=== PATIENT | female | born 2005 | race Caucasian/White ===

== ENCOUNTER 2024-03-31 22:55 | Observation (INO) | payer OTHER ==
[2024-03-31 23:23] VITALS: BP 119/82; PULSE 81; RESP 17; TEMP 98.4; O2SAT 99
== END 2024-04-01 00:13 | disposition home or self-care (01) ==
LOC: OB 22:55
PROVIDERS: ADMIT Obstetrics & Gynecology; ATTEND Obstetrics & Gynecology
DX: Z34.02 Encounter for supervision of normal first pregnancy, second trimester (principal); Z3A.27 27 weeks gestation of pregnancy
CPT/HCPCS: G0378; G0379

== ENCOUNTER 2024-06-06 23:20 | Observation (INO) | payer OTHER ==
[2024-06-06 23:58] VITALS: BP 128/83; PULSE 107; RESP 20; TEMP 98.8; O2SAT 97
[2024-06-07 00:31] LABS: AMNISURE TEST RESULTS NEGATIVE (NEGATIVE)
[2024-06-07 00:37] LABS: Amphetamine,Urine NEGATIVE (NEGATIVE); Barbiturate,Urine NEGATIVE (NEGATIVE); Benzodiazepine,Urine NEGATIVE (NEGATIVE); Cocaine,Urine NEGATIVE (NEGATIVE); Methadone,Urine NEGATIVE (NEGATIVE); Opiate,Urine NEGATIVE (NEGATIVE); PCP,Urine NEGATIVE (NEGATIVE); THC,Urine NEGATIVE (NEGATIVE)
[2024-06-07] MEDS ORDERED: Lactated Ringers 1,000 ML IV ONE (01:06)
[2024-06-07] MEDS ORDERED: Zofran 4 MG/2 ML VIAL ONE (01:07)
[2024-06-07] MEDS: Lactated Ringers 1,000 ML IV SCH (01:09)
[2024-06-07] MEDS: Zofran 4 MG/2 ML VIAL IV PRN (01:09)
[2024-06-07 01:19] LABS: Absolute Neutrophil Ct (ANC) 6.72 x10^3/uL (1.56-6.13); BASOPHIL % 0.2 % (0.1-1.2); Basophil (Absolute #) 0.02 x10^3/uL (0.01-0.08); Eosinophil % 0.8 % (0.7-5.8); Eosinophil (Absolute #) 0.08 x10^3/uL (0.04-0.36); Hematocrit 42.4 % (34.1-44.9); Hemoglobin 13.6 g/dL (11.2-15.7); IMMATURE GRAN # 0.04 x10^3u/L (0.001-0.031); IMMATURE GRAN % 0.4 % (0.001-0.429); Lymphocyte (Absolute #) 2.06 x10^3/uL (1.18-3.74); Lymphocytes % 21.4 % (19.3-51.7); Mean Cell Volume 78.8 fL (79.4-94.8); Mean Corpuscular Hemoglobin 25.3 pg (25.6-32.2); Mean Corpuscular Hgb Concent. 32.1 g/dL (32.2-35.5); Mean Platelet Volume 12.5 fL (9.4-12.3); Monocytes % 7.3 % (4.7-12.5); Neutrophil % 69.9 % (34.0-71.1); Platelet Count 239 x10^3/uL (182-369); Red Blood Count 5.38 x10^6/uL (3.93-5.22); Red Cell Distribution Width 13.8 % (11.7-14.4); White Blood Count 9.6 x10^3/uL (3.98-10.04)
[2024-06-07 01:24] LABS: ALBUMIN 4.4 g/dL (3.5-5.0); ANION GAP 14.2 MEQ/L (5-15); BILIRUBIN,TOTAL 0.4 mg/dL (0.2-1.3); Creatinine 1 0.95 mg/dL (0.52-1.04); Potassium 3.9 mmol/L (3.5-5.1); Total Protein 8.2 g/dL (6.3-8.2)
== END 2024-06-07 02:55 | disposition home or self-care (01) ==
LOC: OB 23:20
PROVIDERS: ADMIT Obstetrics & Gynecology; ATTEND Family Medicine
DX: Z34.03 Encounter for supervision of normal first pregnancy, third trimester (principal); Z3A.37 37 weeks gestation of pregnancy
CPT/HCPCS: 36415; 80053; 80307; 84112; 85025; J2405

== ENCOUNTER 2024-06-19 08:36 | Inpatient (IN) | payer OTHER ==
[2024-06-19] MEDS ORDERED: XYLOCAINE 1% HCL 20 ML MDV IJ PRN (17:00)
[2024-06-19 18:33] LABS: Absolute Neutrophil Ct (ANC) 8.06 x10^3/uL (1.56-6.13); BASOPHIL % 0.2 % (0.1-1.2); Basophil (Absolute #) 0.02 x10^3/uL (0.01-0.08); Eosinophil % 0.8 % (0.7-5.8); Eosinophil (Absolute #) 0.08 x10^3/uL (0.04-0.36); Hematocrit 37.9 % (34.1-44.9); Hemoglobin 12.3 g/dL (11.2-15.7); IMMATURE GRAN # 0.05 x10^3u/L (0.001-0.031); IMMATURE GRAN % 0.5 % (0.001-0.429); Lymphocyte (Absolute #) 1.69 x10^3/uL (1.18-3.74); Lymphocytes % 16.1 % (19.3-51.7); Mean Cell Volume 77.5 fL (79.4-94.8); Mean Corpuscular Hemoglobin 25.2 pg (25.6-32.2); Mean Corpuscular Hgb Concent. 32.5 g/dL (32.2-35.5); Mean Platelet Volume 11.9 fL (9.4-12.3); Monocyte (Absolute #) 0.62 x10^3/uL (0.24-0.86); Monocytes % 5.9 % (4.7-12.5); Neutrophil % 76.5 % (34.0-71.1); Platelet Count 267 x10^3/uL (182-369); Red Blood Count 4.89 x10^6/uL (3.93-5.22); Red Cell Distribution Width 14.1 % (11.7-14.4); White Blood Count 10.5 x10^3/uL (3.98-10.04)
[2024-06-19 19:06] LABS: Amphetamine,Urine NEGATIVE (NEGATIVE); Barbiturate,Urine NEGATIVE (NEGATIVE); Benzodiazepine,Urine NEGATIVE (NEGATIVE); Cocaine,Urine NEGATIVE (NEGATIVE); Methadone,Urine NEGATIVE (NEGATIVE); Opiate,Urine NEGATIVE (NEGATIVE); PCP,Urine NEGATIVE (NEGATIVE); THC,Urine NEGATIVE (NEGATIVE)
[2024-06-19 19:16] LABS: ABO TYPING B; Antibody Screen NEGATIVE (NEGATIVE); RH TYPING POSITIVE
[2024-06-19] MEDS: CYTOTEC PO SCH (20:21)
[2024-06-20] MEDS: FENTANYL 2 MCG-BUPIV 0.125%-NS 250 ML Epidur 250 ML EPIDURAL SCH (09:14)
[2024-06-20] MEDS: Lactated Ringers 1,000 ML IV SCH (10:00)
[2024-06-20] MEDS: PITOCIN 30 UNITS/ LR 500 ML 30 UNITS/500 ML PLAST..BAG IV SCH (10:22)
[2024-06-20] MEDS: Ephedrine Sulfate 50 MG/ML IV PRN (11:00)
[2024-06-20] MEDS: Lactated Ringers 1,000 ML IV ONE (12:00)
[2024-06-20 13:46] LABS: ADD URINE CULTURE? ORDERED SEPARATELY (NO); Appearance Clear (Clear); Bacteria None Seen /HPF (None Seen); Bilirubin Negative (Negative); Blood Negative (Negative); Epithelial Cells None Seen /HPF (None Seen); Glucose, Urine Negative (Negative); Hyaline Casts NONE SEEN /LPF (0-2); Ketones Negative (Negative); Leukocyte Esterase Negative (Negative); Nitrite Negative (Negative); Ph 7.5 (4.6-8.0); Protein,Urine Dip Negative (Negative); RBC 0-2 /HPF (0-5); Urobilinogen 0.2 mg/dL (0.2); WBC 0-2 /HPF (0-5)
[2024-06-20] MEDS ORDERED: Astramorph-Pf 5 MG/10 ML ONE (15:22)
[2024-06-20] MEDS ORDERED: DEMEROL 50 MG IV PRN ×2 (15:28→16:00)
[2024-06-20] MEDS ORDERED: LANSINOH 40 GM TOP PRN (15:29)
[2024-06-20] MEDS ORDERED: Dulcolax 10 MG SUPP PR PRN (15:29)
[2024-06-20] MEDS ORDERED: Anucort-HC SUPPOSITORY PR PRN (15:29)
[2024-06-20] MEDS ORDERED: Dermoplast Spray TP PRN (15:29)
[2024-06-20] MEDS ORDERED: CORTISONE 1% CREAM TP PRN (15:29)
[2024-06-20] MEDS ORDERED: Decadron 4 MG INJ ONE (15:30)
[2024-06-20] MEDS ORDERED: Zofran 4 MG/2 ML VIAL ONE (15:30)
[2024-06-20] MEDS ORDERED: TORAdol 30 mg Injection ONE (15:30)
[2024-06-20] MEDS ORDERED: SUBLIMAZE 100 MCG/2 ML ONE (15:31)
[2024-06-20] MEDS ORDERED: PHENYLEPHRINE HCL ONE (15:34)
[2024-06-20] MEDS ORDERED: Marcaine 0.5%/Epinephrine 10 ML ONE (15:36)
[2024-06-20] MEDS ORDERED: CLARITIN 10 MG PO PRN (16:00)
[2024-06-20] MEDS ORDERED: BENADRYL 50 MG/ML IV PRN (16:00)
[2024-06-20] MEDS ORDERED: MORPHINE SULFATE 2 MG INJ IV PRN (16:00)
[2024-06-20] MEDS ORDERED: Narcan 0.4 MG/ML IV PRN (16:00)
[2024-06-20] MEDS ORDERED: HOLD NARCOTIC ANALGESICS AND SEDATIVES X24 HR MC PRN (16:00)
[2024-06-20] MEDS ORDERED: Nubain 10 MG/ML IV PRN (16:00)
[2024-06-20] MEDS ORDERED: Lactated Ringers 1,000 ML IV ONE (16:28)
[2024-06-20] MEDS: Dextrose 5%-Lr IV Solution 1000 ML 1,000 ML IV SCH (17:30)
[2024-06-20] MEDS ORDERED: CLINDAMYCIN-D5W 900 MG/50 ML*** 900 MG/50 ML BAG IV ONE (17:49)
[2024-06-20] MEDS ORDERED: CLINDAMYCIN-D5W 600 MG/50 ML*** 600 MG/50 ML BAG IV ONE (17:54)
[2024-06-20] MEDS: CLINDAMYCIN-D5W 600 MG/50 ML*** 600 MG/50 ML BAG IV SCH (17:55)
[2024-06-20] MEDS: Docusate Sodium 100 MG PO SCH (22:31)
[2024-06-21] MEDS ORDERED: DEMEROL 50 MG IV PRN (04:11)
[2024-06-21] MEDS: PITOCIN 30 UNITS/ LR 500 ML 30 UNITS/500 ML PLAST..BAG IV SCH (04:34)
[2024-06-21 05:00] LABS: Absolute Neutrophil Ct (ANC) 12.83 x10^3/uL (1.56-6.13); BASOPHIL % 0.1 % (0.1-1.2); Basophil (Absolute #) 0.02 x10^3/uL (0.01-0.08); Eosinophil (Absolute #) 0 x10^3/uL (0.04-0.36); Hematocrit 32.9 % (34.1-44.9); Hemoglobin 10.1 g/dL (11.2-15.7); IMMATURE GRAN # 0.08 x10^3u/L (0.001-0.031); IMMATURE GRAN % 0.5 % (0.001-0.429); Lymphocyte (Absolute #) 0.84 x10^3/uL (1.18-3.74); Lymphocytes % 5.6 % (19.3-51.7); Mean Cell Volume 79.7 fL (79.4-94.8); Mean Corpuscular Hemoglobin 24.5 pg (25.6-32.2); Mean Corpuscular Hgb Concent. 30.7 g/dL (32.2-35.5); Mean Platelet Volume 12.4 fL (9.4-12.3); Monocyte (Absolute #) 1.15 x10^3/uL (0.24-0.86); Monocytes % 7.7 % (4.7-12.5); Neutrophil % 86.1 % (34.0-71.1); Platelet Count 246 x10^3/uL (182-369); Red Blood Count 4.13 x10^6/uL (3.93-5.22); Red Cell Distribution Width 14.2 % (11.7-14.4); White Blood Count 14.9 x10^3/uL (3.98-10.04)
[2024-06-21] MEDS: TYLENOL EXTRA STRENGTH 500 MG PO PRN (06:56)
[2024-06-21 08:23] LABS: RPR Non Reactive (Non Reactive)
--- NOTE | 2024-06-21 10:00 | OP ---
SURGERY DATE/TIME: 06/20/2024 [id number] PREOPERATIVE DIAGNOSES: 1) Nonreassuring heart tones. 2) Term intrauterine . POSTOPERATIVE DIAGNOSES: 1) Nonreassuring heart tones. 2) Term intrauterine . PROCEDURE: Emergency primary low transverse section. SURGEON: Sander Osborne MD ANESTHESIA: General by Contreras Jmaes CRNA ESTIMATED BLOOD LOSS: 500 mL. URINE: 200 mL of clear straw-colored urine in the Harris. DESCRIPTION OF PROCEDURE AND FINDINGS: Briefly, this patient is a 18-year-old, 1, para 0 at 39 weeks' estimated gestational age who, while I was at the bedside placing internal monitors for elective Pitocin induction, had a large prolonged deceleration of heart rate down in the 50s that was persistent in spite of position change. Therefore, she was verbally consented for an emergency section and the OR was notified immediately and thankfully, was in-house and we went straight to OR-2. She underwent general anesthesia and a low transverse skin incision was made by knife, carried down through the subcutaneous fat to the level of the fascia. Fascia was nicked on both sides of the midline extending in a horizontal. The superior free edge of the fascia was grasped with Dhruv clamps and the underlying rectus muscles were dissected free. The same was repeated inferiorly and the peritoneal cavity was opened bluntly and extended into horizontal. Next, bladder blade was inserted, then a low transverse uterine incision was made by knife, carried down to the level of the amniotic membranes, which were ruptured carefully and revealed clear fluid. A viable male infant was delivered from the vertex presentation. He had some delay in respiratory effort but fairly quickly had spontaneous respirations and good tone with good color after cord was clamped and cut, and he was handed off to the awaiting nursery team. Next, the placenta was manually extracted and uterine cavity was sponge curetted and cleaned with a lap sponge. Then finally, the uterine incision was then closed with #1 chromic in a running locked fashion with good hemostasis and good closure achieved to that level. Second layer of chromic suture was used with, again, good closure and good hemostasis achieved. Posterior cul-de-sac was wiped free of blood and clot with a moist lap sponge, and the uterus was returned to the peritoneal cavity. Lateral gutters were wiped free of blood and clot. The right aspect had a small area of oozing which was controlled with 0 Vicryl in a [id number] in the lower uterine segment. The incision was noted to be hemostatic and had good closure following this. Next, the fascia was closed with 0 Vicryl in a running fashion. Good closure and good hemostasis likewise were achieved at that level. The subcutaneous fat was then irrigated with warm sterile saline, and interrupted sutures were placed in the subcutaneous fat to close the space with 2-0 Vicryl. Finally, the skin layer were closed with 4-0 undyed Vicryl in a running subcuticular fashion. Steri-Strips and an occlusive dressing were placed over the incision and patient was transferred to Recovery in good condition. She was hemodynamically stable throughout the entirety of the procedure. Again, verbal consent was obtained due to the emergent nature and need for rapid action at the time of calling when I was at the bedside.
[2024-06-21] MEDS: MOTRIN 400 MG PO PRN (10:07)
[2024-06-21] MEDS: Adacel Vial IM ONE (10:08)
[2024-06-21] MEDS: PERCOCET TABLET 5/325MG PO PRN (12:18)
[2024-06-21] MEDS: NORCO 5/325 MG PO PRN (16:51)
--- NOTE | 2024-06-22 08:54 | PCM.DS ---
Discharge Summary Date of Admission: 06/20/24 08:36 Admitting Physician: LEATHA MAGDALENO Consults: Consults on Case 06/19/24 17:00 Notify Anesthesia Provider PARAS 06/21/24 15:31 Navigation ONCE Primary Care Provider: LEATHA MAGDALENO Allergies Allergies amoxicillin Allergy (Severe, Verified 06/20/24 13:57) Rash Penicillins Allergy (Severe, Verified 06/20/24 13:57) [facility] Summary - Hospital Course Hospital Course: patient had emergency primary with general anesthesia for deep/prolong ed deceleration of heart tones. she has been afebrile, mild lochia and pain controlled postoperatively. she is and well bonded with her son Marlon - Vitals & Intake/Output Vital Signs: Vital Signs Temperature 97.6 F 06/22/24 05:45 Pulse Rate 76 06/22/24 05:45 Respiratory Rate 20 06/22/24 05:45 Blood Pressure 111/54 06/22/24 05:45 O2 Sat by Pulse Oximetry 99 06/22/24 05:45 Intake & Output: Intake & Output 06/19/24 06/20/24 06/21/24 06/22/24 11:59 11:59 11:59 11:59 Intake Total 480 Output Total 2625 Balance -2145 Weight 114.759 kg - Lab Result Diagrams: 06/21/24 04:45 Lab Results-Last 24 Hrs: Lab Results-Last 24 Hours 06/22/24 Range/Units 05:02 POC Glucometer 80 (74 to 106) mg/dL Micro Results-Entire Visit: Microbiology 06/20/24 13:37 Urine Culture - Preliminary Catherized NO GROWTH TO DATE - Procedures and Test Procedures and Tests throughout Hospitalization: Therapy Orders & Screens 06/20/24 16:00 Oxygen Nasal Cannula 3 lpm Comment: Diagnosis: IUP Discharge Exam General Appearance: no apparent distress, obese Neurologic Exam: alert, oriented x 3 Respiratory Exam: normal breath sounds, lungs clear, No respiratory distress Cardiovascular Exam: regular rate/rhythm, normal heart sounds Gastrointestinal/Abdomen Exam: soft, other (optifoam dressing clean, dry, intact) Extremity Exam: normal inspection, normal range of motion Skin Exam: normal color, warm, dry Final Diagnosis/Problem List - Final Discharge Diagnosis/Problem (1) delivery delivered Current Visit: Yes Status: Acute Assessment & Plan: repeat cbc with diff and cmp due to emergent nature of with no preop abx and crash situation with less care for prep time and sterile technique than usual. if labs are reassuring and she does well today might discharge to home later Code(s): O82 - ENCOUNTER FOR DELIVERY WITHOUT INDICATION - Discharge Disposition: Home, Self-Care Condition: Stable Prescriptions: New Hydrocodone/Acetaminophen [Hydrocodone-Acetamin 5-325 mg] 1 tab PO Q6HPRN PRN #28 tablet MDD 4 PRN Reason: Pain Continue Pnv No.95/Ferrous Fum/Folic AC [ Vitamin Tablet] 1 each PO DAILY Levothyroxine Sodium 150 Mcg [Synthroid 150 Mcg] 175 mcg PO DAILY Follow up with: LEATHA MAGDALENO MD [Primary Care Provider] - 5 Days
[2024-06-22 08:58] LABS: Absolute Neutrophil Ct (ANC) 6.52 x10^3/uL (1.56-6.13); BASOPHIL % 0.3 % (0.1-1.2); Basophil (Absolute #) 0.03 x10^3/uL (0.01-0.08); Eosinophil % 1.2 % (0.7-5.8); Eosinophil (Absolute #) 0.11 x10^3/uL (0.04-0.36); Hematocrit 31.6 % (34.1-44.9); Hemoglobin 9.7 g/dL (11.2-15.7); IMMATURE GRAN # 0.07 x10^3u/L (0.001-0.031); IMMATURE GRAN % 0.8 % (0.001-0.429); Lymphocyte (Absolute #) 1.94 x10^3/uL (1.18-3.74); Lymphocytes % 20.8 % (19.3-51.7); Mean Cell Volume 81.7 fL (79.4-94.8); Mean Corpuscular Hemoglobin 25.1 pg (25.6-32.2); Mean Corpuscular Hgb Concent. 30.7 g/dL (32.2-35.5); Mean Platelet Volume 11.3 fL (9.4-12.3); Monocyte (Absolute #) 0.65 x10^3/uL (0.24-0.86); Neutrophil % 69.9 % (34.0-71.1); Platelet Count 181 x10^3/uL (182-369); Red Blood Count 3.87 x10^6/uL (3.93-5.22); Red Cell Distribution Width 14.7 % (11.7-14.4); White Blood Count 9.3 x10^3/uL (3.98-10.04)
[2024-06-22] MEDS: FERREX 150 PO SCH (09:09)
[2024-06-22] MEDS: PERCOCET TABLET 5/325MG PO PRN (09:09)
[2024-06-22 09:11] LABS: ALBUMIN 3.1 g/dL (3.5-5.0); ANION GAP 7.7 MEQ/L (5-15); BILIRUBIN,TOTAL 0.2 mg/dL (0.2-1.3); Calcium 8.4 mg/dL (8.4-10.2); Creatinine 1 0.76 mg/dL (0.52-1.04); Potassium 3.9 mmol/L (3.5-5.1); Total Protein 5.9 g/dL (6.3-8.2)
[2024-06-22] MEDS: Mylicon 80MG PO PRN (09:12)
[2024-06-22] MEDS: ZOFRAN ODT 4 MG PO PRN (10:10)
--- NOTE | 2024-06-22 11:16 | XRAY ---
Indication: Abdominal pain. Status post section. Multiple contiguous axial images obtained through the abdomen and pelvis without contrast. Comparison: None Lung bases clear. Heart not enlarged. Lower abdominal wall demonstrates postsurgical changes related to recent section including intrapelvic free air. No suspicious free fluid or walled off fluid collection. Additional post-gravid changes includes enlarged uterus. Noncontrasted stomach and bowel loops appear nonobstructed. There is mild diffuse colonic fecal debris greatest in ascending and transverse colon. Incidental 21.4 cm hepatomegaly, 15.9 cm splenomegaly, and scattered subcentimeter mesenteric nodes all presumed related to recent . Remaining gallbladder, pancreas, adrenal glands, kidneys, ureters, bladder, and aorta are unremarkable for noncontrast exam. Osseous structures intact. Impression: 1. Normal expected postsurgical changes related to section. No suspicious fluid collection or complications on this noncontrast exam. 2. Normal expected post-gravid changes including enlarged uterus, hepatosplenomegaly, and mesenteric nodes. 3. Incidental mild diffuse fecal stasis.
[2024-06-22 19:13] VITALS: BP 130/75; PULSE 98; RESP 18; TEMP 98.1; O2SAT 99
== END 2024-06-22 18:35 | disposition home or self-care (01) | DRG 788 ==
LOC: OB 08:36 → EDSTATUS 11:41 → OB 18:03 → EEVIPCON 06-20 08:36 → OBSVTOIN 06-20 08:36
PROVIDERS: ADMIT Family Medicine; ATTEND Family Medicine
PROC: 10D00Z1 Extraction of Products of Conception, Low, Open Approach (ICD-10-PCS; principal; 2024-06-20)
DX: O76 Abnormality in fetal heart rate and rhythm complicating labor and delivery (principal); Z3A.39 39 weeks gestation of pregnancy; Z37.0 Single live birth
CPT/HCPCS: 36415; 64488; 74176; 76937; 80053; 80307; 81001; 81003; 82947; 85025; 86592; 86850; 86900; 86901; 87086; 90715; 96372; 99140; G0378; J1100; J1885; J2274; J2371; J2405; J2590; J3010; L0625; Q0162; A9270-GY

== ENCOUNTER 2025-01-11 19:01 | Emergency (ER) | payer OTHER ==
[2025-01-11 19:15] VITALS: TEMP 98.4
[2025-01-11 19:48] LABS: Absolute Neutrophil Ct (ANC) 9.28 x10^3/uL (1.56-6.13); BASOPHIL % 0.3 % (0.1-1.2); Basophil (Absolute #) 0.04 x10^3/uL (0.01-0.08); Eosinophil % 1.1 % (0.7-5.8); Eosinophil (Absolute #) 0.13 x10^3/uL (0.04-0.36); Hematocrit 42.4 % (34.1-44.9); Hemoglobin 13.1 g/dL (11.2-15.7); IMMATURE GRAN # 0.06 x10^3u/L (0.001-0.031); IMMATURE GRAN % 0.5 % (0.001-0.429); Lymphocyte (Absolute #) 2.11 x10^3/uL (1.18-3.74); Lymphocytes % 17.2 % (19.3-51.7); Mean Cell Volume 75.6 fL (79.4-94.8); Mean Corpuscular Hemoglobin 23.4 pg (25.6-32.2); Mean Corpuscular Hgb Concent. 30.9 g/dL (32.2-35.5); Mean Platelet Volume 10.6 fL (9.4-12.3); Monocyte (Absolute #) 0.66 x10^3/uL (0.24-0.86); Monocytes % 5.4 % (4.7-12.5); Neutrophil % 75.5 % (34.0-71.1); Platelet Count 291 x10^3/uL (182-369); Red Blood Count 5.61 x10^6/uL (3.93-5.22); Red Cell Distribution Width 16.2 % (11.7-14.4); White Blood Count 12.3 x10^3/uL (3.98-10.04)
[2025-01-11 19:51] LABS: HCG URINE TEST NEGATIVE (NEGATIVE)
[2025-01-11 19:55] LABS: Appearance Clear (Clear); Bacteria Rare /HPF (None Seen); Bilirubin Negative (Negative); Blood Negative (Negative); Epithelial Cells Few /HPF (None Seen); Glucose, Urine Negative (Negative); Hyaline Casts NONE SEEN /LPF (0-2); Ketones Trace (Negative); Leukocyte Esterase Negative (Negative); Nitrite Negative (Negative); Protein,Urine Dip Negative (Negative); RBC 0-2 /HPF (0-5); Specific Gravity 1.025 (1.005-1.030); Urobilinogen 0.2 mg/dL (0.2); WBC 0-2 /HPF (0-5)
[2025-01-11 20:02] LABS: ALBUMIN 4.7 g/dL (3.5-5.0); ANION GAP 15.5 MEQ/L (5-15); BILIRUBIN,TOTAL 0.3 mg/dL (0.2-1.3); Calcium 9.1 mg/dL (8.4-10.2); Creatinine 1 1.07 mg/dL (0.52-1.04); EST GLOMERULAR FILTRATION RATE 75.8 ML/MIN; Potassium 3.9 mmol/L (3.5-5.1); Total Protein 7.5 g/dL (6.3-8.2)
--- NOTE | 2025-01-11 20:33 | ERPHSYRPT ---
- History of Present Illness Historian: patient Patient Subjective Stated Complaint: patient says she woke up nauseated then around 1:30 PM with her abdomen hurting all the way accross and its getting worse Triage Nursing Assessment: patient alert and oriented x3, abdominal sounds normal x all 4 quadrants. pupils perrla, reflexed intact, gait steady. patient is sweating and appears to be in significant pain. Physician History: Patient's had abdominal pain. It is kind of migrated around the colon area. She said she had a bowel movement that really actually made a little bit worse. Pain is cramping. It came on acutely. It has been throughout her abdomen diffu sely migrating. It is landed in her right colon area. It is in the lower and upper area. She of course was worried about appendicitis. She is not high fever or chills. The symptoms came on very acutely. She had no symptoms prior to this. She has regular bowel movements. Activities at Onset: rest Quality: cramping Allergies/Adverse Reactions: amoxicillin Allergy (Severe, Verified 01/11/25 19:54) Rash Penicillins Allergy (Severe, Verified 01/11/25 19:54) Hives Home Medications: Levothyroxine Sodium 150 Mcg [Synthroid 150 Mcg] 175 mcg PO DAILY 03/31/24 [History] Hx Tetanus, Diphtheria Vaccination/Date Given: Yes Hx Influenza Vaccination/Date Given: Yes Hx Pneumococcal Vaccination/Date Given: No Immunizations Up to Date: Yes Travel Risk - International Travel Have you traveled outside of the country in past 3 weeks: No - Emerging Infectious Disease Are you exhibiting symptoms associated with any current EIDs: No Symptoms: Abdominal Pain, Headaches/Body Aches/, Vomitting - Review of Systems Constitutional: No Symptoms Eyes: No Symptoms Respiratory: No Symptoms Cardiac: No Symptoms Genitourinary Symptoms: No Symptoms - Past Medical History Pertinent Past Medical History: No Neurological History: No Pertinent History ENT History: No Pertinent History Cardiac History: No Pertinent History Respiratory History: No Pertinent History Endocrine Medical History: Hypothyroidism Musculoskeletal History: No Pertinent History GI Medical History: No Pertinent History History: No Pertinent History Psycho-Social History: No Pertinent History Female Reproductive Disorders: No Pertinent History - Past Surgical History Past Surgical History: No Neuro Surgical History: No Pertinent History Cardiac: No Pertinent History Respiratory: No Pertinent History Gastrointestinal: No Pertinent History Genitourinary: No Pertinent History Musculoskeletal: No Pertinent History Female Surgical History: No Pertinent History - Female History Hx Last Menstrual Period: 12/24/24 Hx Now: No - Social History Smoking Status: Never smoker Exposure to second hand smoke: No Drug Use: none - Social Determinants of Health Will the patient participate in the screening: Yes Do you worry about a steady place to live?: No Do you have any problems with any of the following?: No known problems In the past 12 months,have you had to go without utilities?: No Transportation Issues: No Has anyone in your support network made you feel unsafe?: No Have you or anyone in your house had to go w/o enough food: No - Nursing Vital Signs Nursing Vital Signs: Initial Vital Signs Temperature 98.4 F 01/11/25 19:02 Pulse Rate 96 H 01/11/25 19:02 Respiratory Rate 16 01/11/25 19:02 Blood Pressure 136/88 01/11/25 19:02 O2 Sat by Pulse Oximetry 99 01/11/25 19:02 Pain Scale Pain Intensity 6 - Physical Exam General Appearance: no apparent distress Respiratory Exam: normal breath sounds, chest tenderness Cardiovascular Exam: regular rate/rhythm, normal heart sounds Gastrointestinal/Abdomen Exam: soft, normal bowel sounds, tenderness (There are some mild tenderness in the right lower quadrant), No distention Pelvic Exam: not done Back Exam: normal inspection Neurologic Exam: alert, oriented x 3 Skin Exam: normal color, warm, dry SpO2: 77 Ordered Tests: Active Orders 24 hr Category Date Time Status KUB Stat Exams 01/11/25 20:17 Taken CBC W DIFF Stat Lab 01/11/25 19:40 Completed CMP Stat Lab 01/11/25 19:40 Completed HCG QUALITATIVE, URINE Stat Lab 01/11/25 19:47 Completed UA W/RFX UR CULTURE Stat Lab 01/11/25 19:47 Completed Lab/Rad Data: Laboratory Result Diagrams 01/11/25 19:40 01/11/25 19:40 Laboratory Results 01/11/25 01/11/25 01/11/25 Range/Units 19:47 19:47 19:40 WBC (3.98-10.04) x10^3/uL RBC (3.93-5.22) x10^6/uL Hgb (11.2-15.7) g/dL Hct (34.1-44.9) % MCV (79.4-94.8) fL MCH (25.6-32.2) pg MCHC (32.2-35.5) g/dL RDW (11.7-14.4) % Plt Count (182-369) x10^3/uL MPV (9.4-12.3) fL Gran % (34.0-71.1) % Immature Gran % (Auto) (0.001-0.429) % Nucleat RBC Rel Count (0.00-0.2) % Eos # (Auto) (0.04-0.36) x10^3/uL Immature Gran # (Auto) (0.001-0.031) x10^3u/L Absolute Lymphs (auto) (1.18-3.74) x10^3/uL Absolute Monos (auto) (0.24-0.86) x10^3/uL Absolute Nucleated RBC (0.00-0.012) x10^3u/L Lymphocytes % (19.3-51.7) % Monocytes % (4.7-12.5) % Eosinophils % (0.7-5.8) % Basophils % (0.1-1.2) % Absolute Granulocytes (1.56-6.13) x10^3/uL Basophils # (0.01-0.08) x10^3/uL Sodium 140 (135-145) mmol/L Potassium 3.9 (3.5-5.1) mmol/L Chloride 104 (98-107) mmol/L Carbon Dioxide 24 (22-30) mmol/L Anion Gap 15.5 H (5-15) MEQ/L BUN 17 (7-17) mg/dL Creatinine 1.07 H (0.52-1.04) mg/dL Estimated GFR 75.8 ML/MIN Glucose 97 (74-106) mg/dL Calcium 9.1 (8.4-10.2) mg/dL Total Bilirubin 0.30 (0.2-1.3) mg/dL AST 28 (14-36) U/L ALT 23 (0-35) U/L Alkaline Phosphatase 71 (38-126) U/L Serum Total Protein 7.5 (6.3-8.2) g/dL Albumin 4.7 (3.5-5.0) g/dL Urine Color Yellow (Yellow) Urine Appearance Clear (Clear) Urine pH 6.0 (4.6-8.0) Ur Specific Maidens 1.025 (1.005-1.030) Urine Protein Negative (Negative) Urine Glucose (UA) Negative (Negative) mg/dL Urine Ketones Trace A (Negative) Urine Blood Negative (Negative) Urine Nitrite Negative (Negative) Urine Bilirubin Negative (Negative) Urine Urobilinogen 0.2 (0.2) mg/dL Ur Leukocyte Esterase Negative (Negative) U Hyaline Cast (Auto) NONE SEEN (0-2) /LPF Urine Microscopic RBC 0-2 (0-5) /HPF Urine Microscopic WBC 0-2 (0-5) /HPF Ur Epithelial Cells Few (None Seen) /HPF Urine Bacteria Rare A (None Seen) /HPF Urine Culture Reflexed NO (NO) Urine HCG, Qual NEGATIVE (NEGATIVE) 01/11/25 Range/Units 19:40 WBC 12.3 H (3.98-10.04) x10^3/uL RBC 5.61 H (3.93-5.22) x10^6/uL Hgb 13.1 (11.2-15.7) g/dL Hct 42.4 (34.1-44.9) % MCV 75.6 L (79.4-94.8) fL MCH 23.4 L (25.6-32.2) pg MCHC 30.9 L (32.2-35.5) g/dL RDW 16.2 H (11.7-14.4) % Plt Count 291 (182-369) x10^3/uL MPV 10.6 (9.4-12.3) fL Gran % 75.5 H (34.0-71.1) % Immature Gran % (Auto) 0.5 H (0.001-0.429) % Nucleat RBC Rel Count 0.0 (0.00-0.2) % Eos # (Auto) 0.13 (0.04-0.36) x10^3/uL Immature Gran # (Auto) 0.06 H (0.001-0.031) x10^3u/L Absolute Lymphs (auto) 2.11 (1.18-3.74) x10^3/uL Absolute Monos (auto) 0.66 (0.24-0.86) x10^3/uL Absolute Nucleated RBC 0.00 (0.00-0.012) x10^3u/L Lymphocytes % 17.2 L (19.3-51.7) % Monocytes % 5.4 (4.7-12.5) % Eosinophils % 1.1 (0.7-5.8) % Basophils % 0.3 (0.1-1.2) % Absolute Granulocytes 9.28 H (1.56-6.13) x10^3/uL Basophils # 0.04 (0.01-0.08) x10^3/uL Sodium (135-145) mmol/L Potassium (3.5-5.1) mmol/L Chloride (98-107) mmol/L Carbon Dioxide (22-30) mmol/L Anion Gap (5-15) MEQ/L BUN (7-17) mg/dL Creatinine (0.52-1.04) mg/dL Estimated GFR ML/MIN Glucose (74-106) mg/dL Calcium (8.4-10.2) mg/dL Total Bilirubin (0.2-1.3) mg/dL AST (14-36) U/L ALT (0-35) U/L Alkaline Phosphatase (38-126) U/L Serum Total Protein (6.3-8.2) g/dL Albumin (3.5-5.0) g/dL Urine Color (Yellow) Urine Appearance (Clear) Urine pH (4.6-8.0) Ur Specific Maidens (1.005-1.030) Urine Protein (Negative) Urine Glucose (UA) (Negative) mg/dL Urine Ketones (Negative) Urine Blood (Negative) Urine Nitrite (Negative) Urine Bilirubin (Negative) Urine Urobilinogen (0.2) mg/dL Ur Leukocyte Esterase (Negative) U Hyaline Cast (Auto) (0-2) /LPF Urine Microscopic RBC (0-5) /HPF Urine Microscopic WBC (0-5) /HPF Ur Epithelial Cells (None Seen) /HPF Urine Bacteria (None Seen) /HPF Urine Culture Reflexed (NO) Urine HCG, Qual (NEGATIVE) - Progress Progress Note: Patient was stable throughout stay. She did not have fever and she did not have a white count. She had some mild tenderness but it did not appear to be exquisite and it was also found in the right upper quadrant as well 2. I spoke with the patient at length about this we decided that we are going to do serial exam. She is going to go home and come back tomorrow for reexamination especially if it gets worse she can come in sooner. I did did not want to expose her to radiation and she agreed with that. At this time I think that is probably colonic tenderness and spasms. It could be an early appendicitis but I think that serial examinations of the treatment diagnostic option of choice for her.On the differential is appendicitis, colonic spasms, , ovarian cyst.She denied any pelvic discharge or drainage and did not have any bleeding. I think that pelvic inflammatory disease or something like that is less likely. 01/11/25 21:43 01/11/25 21:45 01/11/25 21:46 - Departure Departure Disposition: Home Clinical Impression: Right lower quadrant pain Condition: Stable Critical Care Time: No Referrals: LEATHA MAGDALENO MD [Primary Care Provider] - Follow up/PCP as directed Instructions: Abdominal pain
[2025-01-11 21:05] VITALS: BP 100/68; PULSE 99; RESP 22
[2025-01-11 21:47] VITALS: O2SAT 77
--- NOTE | 2025-01-12 08:46 | XRAY ---
Indication: Abdomen pain. Comparison: None KUB nonacute and nonobstructed. Solid organs and osseous structures are unremarkable.
== END 2025-01-11 21:50 | disposition home or self-care (01) ==
LOC: ED 19:01
DX: R10.31 Right lower quadrant pain (principal); Z79.899 Other long term (current) drug therapy
CPT/HCPCS: 36415; 74018; 80053; 81001; 81025; 85025; 99283; 99284